=== PATIENT | male | born 1960 | race Caucasian/White ===

== ENCOUNTER 2017-01-25 16:53 | Emergency (ER) | payer OTHER ==
[~2017-01-25] VITALS: Ht 182.9 cm; Wt 103.2 kg
[~2017-01-25 16:53] MED LIST: EPA FISH OIL1000 MG PO; FLONASE NASAL S16 GM NS; TRICOR 48MG48 MG PO; VENTOLIN0.09 MG IH; ZOCOR 10MG10 MG PO; ZOLOFT 50MG50 MG PO; ZYRTEC 10MG10 MG PO
[2017-01-25 17:03] VITALS: BP 128/88
[2017-01-25] MEDS ORDERED: PATANOL OPHTHALM5 ML OD (17:58)
[2017-01-25] MEDS ORDERED: VYTORIN 10 MG-41 TAB PO (17:58)
[2017-01-25] MEDS ORDERED: FLOVENT 220MCG7.9 GM IH (17:58)
[2017-01-25] MEDS ORDERED: NEXIUM 40MG40 MG PO (17:58)
[2017-01-25] MEDS ORDERED: SINGULAIR 110 MG/TAB PO (17:58)
[2017-01-25 18:35] LABS: INFLUENZA B NEGATIVE
[2017-01-25 18:52] VITALS: PULSE 89
[2017-01-25] MEDS ORDERED: DOXYCYCLINE HY100 MG PO (19:38)
[2017-01-25 19:46] VITALS: TEMP 99.8
== END 2017-01-25 19:47 | disposition home or self-care (01) ==
LOC: COL.ER 16:53
PROVIDERS: Nurse Practitioner
DX: J20.9 Acute bronchitis, unspecified (principal); J45.909 Unspecified asthma, uncomplicated; Z88.2 Allergy status to sulfonamides